=== PATIENT | male | born 1965 | race Caucasian/White ===

== ENCOUNTER 2018-02-28 16:43 | Emergency (ER) | payer OTHER, BC ==
--- NOTE | 2018-02-28 16:51 | PDOC ---
Attending Attestation - Resident Resident Name: Mayelin Saul - ED Attending Attestation I have performed the following: I have examined & evaluated the patient, The case was reviewed & discussed with the resident, I agree w/resident's findings & plan, Exceptions are as noted - HPI HPI: 02/28/18 17:16 52yo M hx NIDDM (intermittently compliant with medications) presents to the ED with poison luisito rash to b/l arms, neck, trunks after exposure at work 3 days ago. Pt reports significant itching that's keeping him up at night. Has tried only kalamine lotion which hasn't worked. Has had poison luisito in the past that self resolved. Denies f/c. Pt reports he has not taken his DM medications in 1mo cause he ran out and has not f/u with PMD. Denies abd pain, N/V/D, SOB, CP. FS 431 here in ED, pt ate lunch just prior to arrival. Denies dizziness, focal weakness or numbness, headache. - Physicial Exam PE: 02/28/18 17:24 WA, NAD Ventral arms, anterior neck, left trunk with diffuse erythematous patches with superimposed vesicles and excoriations - Medical Decision Making 02/28/18 17:26 52yo M p/w poison luisito dermatitis. Will treat with topical triamcinalone for 1 week - instructed pt not to use for longer than that to prevent skin atrophy. Will also refer to dermatology for f/u. With regards to FS 421, pt just ate lunch and non compliant with medications. Has no sxs concerning for DKA, but offered pt labwork and he prefers to f/u with his PMD. Called mariana to confirm his metformin and glyburide doses and will refill until he f/u with PMD. I discussed the physical exam findings, ancillary test results and final diagnoses with the patient. I answered all of the patient's questions. The patient was satisfied with the care received and felt comfortable with the discharge plan and treatment plan. The patient will call their primary care physician within 24 hours to arrange follow-up and will return to the Emergency Department with any new, persistent or worsening symptoms.
--- NOTE | 2018-02-28 17:02 | PDOC ---
History of Present Illness - General Chief Complaint: Poison Lisco,Poison Debby Exposure Stated Complaint: RASH Time Seen by Provider: 02/28/18 16:45 History Source: Patient Exam Limitations: No Limitations - History of Present Illness Initial Comments: 02/28/18 17:08 This is a 52 YOM with h/o NIDDM, HTN, HLD who p/w diffuse upper bodily rash which is very itchy and burning, onset Wednesday, keeping him from sleep because it is so irritated, unrelieved by Calamine lotion. 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 The rash is most prominent on both arms, around the circumference of the neck, on the left side of his head, and on the front of the chest Metformin 1000 bid Glyburide Past History - Past Medical History Allergies/Adverse Reactions: Allergies Allergy/AdvReac Type Severity Reaction Status Date / Time No Known Allergies Allergy Verified 02/28/18 17:05 Home Medications: Ambulatory Orders Glimepiride 4 mg PO BID #60 tablet 02/28/18 Lisinopril 5 mg PO DAILY #30 tablet 02/28/18 Metformin HCl [Metformin HCl ER] 1,000 mg PO DAILY #30 tab.er.24 02/28/18 Triamcinolone 0.5% Cream [Aristocort 0.5% Cream -] 1 applic TP QID 7 Days #1 tube 02/28/18 CVA: No COPD: No CHF: No Diabetes: Yes HTN: Yes - Suicide/Smoking/Psychosocial Hx Smoking History: Current every day smoker Have you smoked in the past 12 months: Yes Number of Cigarettes Smoked Daily: 20 Cigars Per Day: 0 'Breaking Loose' booklet given: 02/07/16 Hx Alcohol Use: No Drug/Substance Use Hx: No Substance Use Type: Alcohol Medical Decision Making - Medical Decision Making 02/28/18 17:15 I spoke with Domingo on [facility] where the patient collects his prescriptions. The patient is reportedly supposed to be taking: Lisinopril 5 mg daily. Metformin 1000 mg daily. Glimepiride 4 mg bid. E-Rx is sent for these prescriptions to his pharmacy to refill. 02/28/18 17:19 FSBG is 421. Ordered is Metformin 1000 mg and Glimepiride 4 mg per patient's dose. I am not concerned about DKA or HHS or other serious complication of hyperglycemia in DM. The patient adamantly denies any nausea, vomiting, diarrhea, headache, polyuria , polydipsia, abdominal pain, etc. He has no signs or symptoms of serious complication and we know why his FSBG is so high. He has not been taking any of his medications for a month because he ran out of refills. *DC/Admit/Observation/Transfer Diagnosis at time of Disposition: Poison debby dermatitis, Work-related condition, Splinter in skin - Discharge Dispostion Disposition: HOME Condition at time of disposition: Good Decision to Admit order: No - Prescriptions Prescriptions: Glimepiride 4 mg PO BID #60 tablet Lisinopril 5 mg PO DAILY #30 tablet Metformin HCl [Metformin HCl ER] 1,000 mg PO DAILY #30 tab.er.24 Triamcinolone 0.5% Cream [Aristocort 0.5% Cream -] 1 applic TP QID 7 Days #1 tube - Referrals Referrals: Harini Hyde MD [Staff Physician] - Parker Zuniga MD [Primary Care Provider] - - Patient Instructions Printed Discharge Instructions: DI for Poison Debby Allergy Additional Instructions: YOU WERE SEEN IN THE ER FOR AN ITCHY SKIN RASH WHICH IS CONSISTENT WITH POISON DEBBY EXPOSURE (WHICH YOU KNOW YOU REMEMBER BEING EXPOSED TO THREE DAYS AGO). WE DID AN EXAM AND GAVE YOU YOUR NORMAL DOSES OF YOUR CHRONIC MEDICATIONS THAT YOU HAVE NOT TAKEN FOR THE PAST MONTH. YOUR FINGER STICK BLOOD GLUCOSE WAS HIGH (421 ) AND WE MADE SURE THAT YOU HAVE NOT BEEN HAVING ANY SYMPTOMS OF SERIOUS COMPLICATIONS OF HIGH BLOOD SUGAR. AFTER OUR ASSESSMENT, WE DO NOT BELIEVE YOU ARE HAVING A MEDICAL EMERGENCY AT THIS TIME, AND WE BELIEVE YOU ARE SAFE TO GO HOME. GIFT PACKER YOUR PRESCRIPTIONS WHICH WE ARE SENDING ELECTRONICALLY TO YOUR PHARMACY. THIS INCLUDES AN HYDROXYZINE, WHICH YOU SHOULD TAKE DURING THE DAY NEEDED FOR ITCHING, ACCORDING TO THE DOSING ON THE MEDICATION LABEL. DO NOT DRIVE OR OPERATE MACHINERY WHILE TAKING HYDROXAZINE IT CAN MAKE YOU DROWSY. PLEASE APPLY TOPICAL TRIAMCINOLONE STEROID CREAM TO THE RED/BURNING/ITCHY AREAS ACCORDING TO THE LABEL INSTRUCTIONS, AND DO NOT PUT THIS ON YOUR FACE OR YOUR GENITALS OR ON FOLDS IN YOUR SKIN. USE THIS CREAM FOR ONLY 7 DAYS, NO LONGER. WE ARE ALSO SENDING PRESCRIPTIONS FOR A ONE-MONTH REFILL OF YOUR CHRONIC MEDICATIONS (LISINOPRIL, METFORMIN, AND GLIMEPIRIDE). PLEASE FOLLOW UP WITH YOUR PRIMARY CARE PROVIDER IN 1-3 DAYS. CALL THEIR CLINIC, TELL THEM YOU WERE SEEN IN THE ER, AND TELL THEM YOU NEED A FOLLOW-UP. YOU NEED TO TAKE YOUR CHRONIC REGULAR MEDICATIONS BECAUSE YOUR BLOOD SUGAR WAS SO HIGH IT CAN BECOME DANGEROUS AND LIFE-THREATENING. YOU REALLY NEED TO GET YOUR REFILLS UPDATED BY YOUR DOCTOR. IF YOU HAVE ANY NEW OR WORSENING SYMPTOMS, ESPECIALLY INCREASING PAIN AND REDNESS TO THE AREA OR OTHER SIGNS OF INFECTION LIKE FEVER, THROAT CLOSING SENSATION, DIFFICULTY BREATHING, VOMITING, OR OTHER SYMPTOMS, PLEASE COME BACK TO THE ER AT ANY TIME (24 HOURS A DAY). IF YOU ARE HAVING SEVERE OR LIFE THREATENING SYMPTOMS, OR SYMPTOMS THAT MAKE IT UNSAFE TO DRIVE OR HAVE SOMEONE DRIVE YOU, PLEASE CALL 911. - Post Discharge Activity
[2018-02-28] MEDS ORDERED: HEMOQUE TEST 1 EACH EACH ONE ×2 (17:09→17:13)
[2018-02-28] MEDS ORDERED: GLIMEPIRIDE 4 MG TABLET (FP) PO ONE (17:18)
[2018-02-28] MEDS ORDERED: metFORMIN HCL 500 MG TABLET (FP) PO ONE (17:18)
[2018-02-28 17:23] VITALS: BP 139/84; PULSE 86; TEMP 98.6; BMI 40.1
[2018-02-28] MEDS ORDERED: metFORMIN HCL 500 MG TABLET (FP) ONE (17:28)
[2018-02-28] MEDS ORDERED: hydrOXYzine HCL 25 MG TABLET (FP) PO PRN (17:43)
== END 2018-02-28 17:54 | disposition home or self-care (01) ==
LOC: FER 16:43
DX: L23.7 Allergic contact dermatitis due to plants, except food (principal)
CPT/HCPCS: 82962; 99281-25

== ENCOUNTER 2020-05-30 10:42 | Emergency (ER) | payer BC | END 2020-05-30 12:22 | disposition home or self-care (01) | LOC: JVIRT 10:42 | DX: Z20.828 Contact with and (suspected) exposure to other viral communicable diseases (principal) | CPT/HCPCS: C9803; G2012-GT; Q3014-GT; U0003 ==

== ENCOUNTER 2023-06-02 03:27 | Emergency (ER) | payer BC ==
[2023-06-02 03:45] VITALS: BP 180/102; PULSE 107; RESP 20; TEMP 98.8; BMI 32.7
[2023-06-02 07:10] LABS: EPI CELLS 35 /uL (0-25.1); HYALINE CASTS 20 /uL (0-3.1); URINE APPEARANCE CLOUDY; URINE BACTERIA 7 /uL (0-1359); URINE BILIRUBIN 1+ (NEGATIVE); URINE COLOR DK YELLOW; URINE GLUCOSE (UA) NEGATIVE (NEGATIVE); URINE KETONE TRACE (NEGATIVE); URINE LEUK ESTERASE 2+ (NEGATIVE); URINE NITRITE NEGATIVE (NEGATIVE); URINE PROTEIN 1+ (NEGATIVE); URINE WBC 201 /uL (0-25.8)
[2023-06-02 08:20] LABS: URINE RBC 39.5 /uL (0-23.9)
== END 2023-06-02 06:48 | disposition home or self-care (01) ==
LOC: JER 03:27
DX: R07.81 Pleurodynia (principal); M54.9 Dorsalgia, unspecified; Y04.8XXA Assault by other bodily force, initial encounter
CPT/HCPCS: 71250-TC; 81003; 99284-25

== ENCOUNTER 2023-06-06 20:41 | Emergency (ER) | payer BC ==
[2023-06-06 20:49] VITALS: BP 170/91; PULSE 89; RESP 20; TEMP 98.4; BMI 32.7
[2023-06-06] MEDS ORDERED: IBUPROFEN 400 MG TABLET (FP) PO ONE (21:50)
[2023-06-06] MEDS ORDERED: ACETAMINOPHEN 500 MG TABLET (FP) PO ONE (21:50)
[2023-06-06] MEDS ORDERED: ACETAMINOPHEN 325 MG TABLET (FP) ONE (22:37)
[2023-06-06] MEDS ORDERED: IBUPROFEN 600 MG TABLET (FP) PO ONE (22:37)
[2023-06-06 22:57] LABS: BASO % 0.9 % (0-2.0); EOS % 0.5 % (0-4.5); HEMATOCRIT 41.8 % (35.4-49); HEMOGLOBIN 14.1 GM/dL (11.7-16.9); LYMPH % 32.9 % (8-40); MCH 29.2 pg (25.7-33.7); MCHC 33.7 g/dl (32.0-35.9); MEAN CELL VOLUME 86.7 fl (80-96); MEAN PLT VOLUME 9.4 fl (7.5-11.1); MONO % 4.6 % (3.8-10.2); NEUT % 61.1 % (42.8-82.8); PLATELET COUNT 168 10^3/uL (134-434); RBC 4.82 M/mm3 (4.00-5.60); RDW 13.4 % (11.9-15.9); WHITE BLOOD COUNT 8.6 K/mm3 (4.0-10.0)
[2023-06-06 23:19] LABS: POTASSIUM 3.9 mmol/L (3.5-5.1)
[2023-06-06] MEDS ORDERED: LISINOPRIL 10 MG TABLET PO ONE (23:28)
[2023-06-06 23:40] LABS: ALBUMIN 3.8 g/dl (3.4-5.0); BLOOD UREA NITROGEN 13.7 mg/dL (7-18); CALCIUM 9.2 mg/dL (8.5-10.1)
[2023-06-06 23:47] LABS: BILIRUBIN,TOTAL 0.4 mg/dL (0.2-1); CREATININE 0.7 mg/dL (0.55-1.3)
[2023-06-06 23:48] LABS: TOT PROT 6.4 g/dl (6.4-8.2)
== END 2023-06-07 00:22 | disposition home or self-care (01) ==
LOC: JER 20:41
DX: S29.011A Strain of muscle and tendon of front wall of thorax, initial encounter (principal); R10.9 Unspecified abdominal pain; R51.9 Headache, unspecified; Y04.0XXS Assault by unarmed brawl or fight, sequela; Y92.9 Unspecified place or not applicable
CPT/HCPCS: 36415; 70450-TC; 80053; 85025; 93005; 93010; 99284-25

== ENCOUNTER 2023-11-25 13:32 | Emergency (ER) | payer BC, OTHER ==
[2023-11-25 13:41] VITALS: RESP 18; TEMP 98.3; BMI 32.3
[2023-11-25] MEDS ORDERED: KETOROLAC TROMETHAMINE 30 MG/1 ML VIAL ONE (14:41)
[2023-11-25 14:45] LABS: BASO % 0.6 % (0-2.0); EOS % 0.3 % (0-4.5); HEMATOCRIT 42.7 % (35.4-49); HEMOGLOBIN 14.2 GM/dL (11.7-16.9); LYMPH % 23.9 % (8-40); MCH 29.5 pg (25.7-33.7); MCHC 33.3 g/dl (32.0-35.9); MEAN CELL VOLUME 88.6 fl (80-96); MEAN PLT VOLUME 8.6 fl (7.5-11.1); NEUT % 71.2 % (42.8-82.8); PLATELET COUNT 142 10^3/uL (134-434); RBC 4.82 M/mm3 (4.00-5.60); RDW 13.6 % (11.9-15.9); WHITE BLOOD COUNT 6.7 K/mm3 (4.0-10.0)
[2023-11-25] MEDS: KETOROLAC TROMETHAMINE 30 MG/1 ML VIAL IVPUSH ONE (14:49)
[2023-11-25] MEDS: SODIUM CHLORIDE 0.9% 500 ML INFUS.BAG IV ONE (14:49)
[2023-11-25 15:05] LABS: POTASSIUM 4.2 mmol/L (3.5-5.1)
[2023-11-25 15:07] LABS: ALBUMIN 3.6 g/dl (3.4-5.0); BLOOD UREA NITROGEN 15.2 mg/dL (7-18); CALCIUM 9.1 mg/dL (8.5-10.1)
[2023-11-25 15:12] LABS: BILIRUBIN,TOTAL 0.4 mg/dL (0.2-1); CREATININE 0.6 mg/dL (0.55-1.3); TOT PROT 6.4 g/dl (6.4-8.2)
[2023-11-25 16:27] LABS: URINE APPEARANCE CLEAR; URINE BILIRUBIN NEGATIVE (NEGATIVE); URINE COLOR YELLOW; URINE GLUCOSE (UA) NEGATIVE (NEGATIVE); URINE KETONE TRACE (NEGATIVE); URINE LEUK ESTERASE NEGATIVE (NEGATIVE); URINE NITRITE NEGATIVE (NEGATIVE); URINE PROTEIN NEGATIVE (NEGATIVE); URINE UROBILINOGEN 0.2 mg/dL (0.2-1.0)
[2023-11-25 17:57] VITALS: BP 146/77; PULSE 60
== END 2023-11-25 17:57 | disposition home or self-care (01) ==
LOC: JER 13:32
PROC: 3E0333Z Introduction of Anti-inflammatory into Peripheral Vein, Percutaneous Approach (ICD-10-PCS; principal; 2023-11-25)
DX: R10.11 Right upper quadrant pain (principal); X50.1XXA Overexertion from prolonged static or awkward postures, initial encounter
CPT/HCPCS: 36415; 74177-TC; 80053; 81003; 83690; 85025; 87086; 99285-25; Q9967